=== PATIENT | male | born 2000 | race Caucasian/White ===

== ENCOUNTER → 2023-08-11 | Outpatient (CLI) | payer OTHER | LOC: M RAD 09:21 → M LAB 09:21 | PROVIDERS: ATTEND Nurse Practitioner Family | DX: M25.562 Pain in left knee (principal); M25.561 Pain in right knee ==

== ENCOUNTER 2024-02-19 21:48 | Emergency (ER) | payer OTHER, SELFPAY ==
[~2024-02-19] VITALS: Ht 188 cm; Wt 81.6 kg
[2024-02-20] MEDS: NORCO, ANEXSIA 5/325MG TABLET (HYDROcodone/ACETAMINOPHEN) PO ONE (00:48)
[2024-02-20] MEDS ORDERED: ISOVUE-370 76% 100ML VIAL As Ordered ONE (01:18)
[2024-02-20 01:23] LABS: BASO # 0.1 10^3/uL (0.0-0.2); BASO % 0.4 % (0.0-1.0); EOS # 0.1 10^3/uL (0.0-0.5); EOS % 0.4 % (0.0-3.0); HEMATOCRIT 46.7 % (42.0-52.0); HEMOGLOBIN 15.9 g/dl (13.5-17.5); LYMPH # 2.5 10^3/uL (1.5-5.0); LYMPH % 19.3 % (24.0-44.0); MEAN CORPUSCULAR HEMOGLOBIN 29.4 pg (27.0-33.0); MEAN CORPUSCULAR VOLUME 86.5 fl (80.0-96.0); MONO # 1.3 10^3/uL (0.0-0.8); MONO % 10.3 % (2.0-8.0); NEUTROPHILS # 8.8 10^3/uL (1.5-8.5); NEUTROPHILS % 69.4 % (36.0-66.0); PLATELET COUNT, AUTOMATED 267 10^3/uL (150-450); WHITE BLOOD COUNT 12.7 10^3/uL (4.0-10.0)
[2024-02-20 02:44] VITALS: BP 135/87; TEMP 98.8
[2024-02-20] MEDS: ONDANSETRON 4MG 2ML VIAL IV ONE (02:52)
[2024-02-20] MEDS: MORPHINE 4 MG/ML 1ML VIAL IV ONE (02:53)
[2024-02-20 03:08] VITALS: O2SAT 100
[2024-02-20] MEDS ORDERED: NAPR-837 PO (03:33)
[2024-02-20] MEDS: KETOROLAC 30 MG/ML 1ML VIAL IV ONE (03:39)
[2024-02-20] MEDS: OXYCODONE/APAP 5MG/325MG(HOME DOSE PACK) PO ONE (03:42)
== END 2024-02-20 04:25 | disposition home or self-care (01) ==
LOC: M ED 23:58
DX: S76.011A Strain of muscle, fascia and tendon of right hip, initial encounter (principal); W51.XXXA Accidental striking against or bumped into by another person, initial encounter; Y92.9 Unspecified place or not applicable; Y93.23 Activity, snow (alpine) (downhill) skiing, snowboarding, sledding, tobogganing and snow tubing; Y99.9 Unspecified external cause status
CPT/HCPCS: 70450; 72125; 72131; 72190; 73502; 74177; 80047; 85025; 96374; 96375; 99283; J1885; J2405; Q9967